=== PATIENT | female | born 1995 | race Caucasian/White ===

== ENCOUNTER 2020-05-02 17:56 | Emergency (ER) | payer OTHER ==
[~2020-05-02] VITALS: Ht 175.3 cm; Wt 63.5 kg
[2020-05-02] MEDS ORDERED: SERTRALINE HCL100 MG PO (18:12)
[2020-05-02] MEDS ORDERED: [UNRECOGNIZED DRUG - OTHER] SQ (18:13)
[2020-05-02 19:26] VITALS: BP 120/72
== END 2020-05-02 19:26 | disposition home or self-care (01) ==
LOC: M.ERS 17:56
DX: U07.1 COVID-19 (principal)